=== PATIENT | male | born 1930 | race Caucasian/White ===

== ENCOUNTER → 2017-10-17 | Outpatient (CLI) | payer OTHER ==
[~2017-10-17] MED LIST: ACET500 PO; ALBU90OI61 INH; ASPI81EC; ASPI81EC PO; ATOR10; ATOR80 PO; Aspir 8181 MG PO; BISA10S PR; CHOL10002 PO; DIGO.25; DIGO.25 PO; DOC250; DOCCAL240 PO; DONE5 PO; DOXE0.5 PO; ENAL20; ENAL20 PO; ENAL5 PO; EZET10 PO; FLUO20; FLUO20 PO; FURO20 PO; FURO40; FURO40 PO; KETO15TC TOP; LOPE2C PO; MOXI400 PO; Micro-K10 MEQ PO; Milk Of Ma400 MG/5 M PO; NYST100TC TOP; Norco 5-325 Ta1 EACH PO; OMEP20ER PO; PHENY100ER; PHENY100ER PO; POTCHL20ER; POTCHL20ER PO; Prozac20 MG PO; Zofran Odt4 MG SL
[2017-10-17 17:40] LABS: Stool Occult Bld Immuno 1 Negative (NEGATIVE)
== END | disposition home or self-care (01) ==
LOC: LAB 13:08
PROVIDERS: Internal Medicine Gastroenterology
DX: D64.9 Anemia, unspecified (principal)
CPT/HCPCS: G0328

== ENCOUNTER → 2017-10-20 | Outpatient (CLI) | payer OTHER ==
[~2017-10-20] MED LIST changes: +Ferrous Glucon324 M1 PO
[2017-10-21 15:08] LABS: Stool Occult Bld Immuno 1 Negative (NEGATIVE)
== END | disposition home or self-care (01) ==
LOC: LAB SHORT 11:00 → LAB 11:00
PROVIDERS: Internal Medicine Gastroenterology
DX: D64.9 Anemia, unspecified (principal)
CPT/HCPCS: 82274

== ENCOUNTER 2018-08-08 14:03 | Emergency (ER) | payer OTHER ==
[~2018-08-08] VITALS: Ht 177.8 cm; Wt 86.2 kg
[~2018-08-08 14:03] MED LIST changes: +OMEPRAZOLE MAGN20 MG PO
[2018-08-08 15:01] LABS: BASOPHILS ABSOLUTE AUTO 0.04 K/mm3 (0.00-0.23); BASOPHILS PERCENT AUTO 0 % (0-2); EOSINOPHILS ABSOLUTE AUTO 0.32 K/mm3 (0.00-0.68); EOSINOPHILS PERCENT AUTO 4 % (0-6); Hematocrit 43.6 % (37.0-53.0); IMMATURE GRAN ABSOLUTE AUTO 0.03 K/mm3 (0.00-0.10); IMMATURE GRAN PERCENT AUTO 0 % (0-1); LYMPHOCYTES ABSOLUTE AUTO 2.31 K/mm3 (0.84-5.20); LYMPHOCYTES PERCENT AUTO 26 % (21-46); MONOCYTES ABSOLUTE AUTO 1.23 K/mm3 (0.16-1.47); MONOCYTES PERCENT AUTO 14 % (4-13); Mean Corpuscular HGB 33.6 pg (26.0-34.0); Mean Corpuscular HGB Conc 32.1 g/dL (31.5-36.5); Mean Corpuscular Volume 105 fL (80-100); NEUTROPHILS ABSOLUTE AUTO 4.96 K/mm3 (1.96-9.15); NEUTROPHILS PERCENT AUTO 56 % (41-73); Platelet Count 249 K/mm3 (150-400); RDW Coefficient Variation 12.7 % (11.7-14.2); RDW Standard Deviation 49.1 fL (35.1-46.3); Red Blood Cell Count 4.17 M/mm3 (4.30-5.90); White Blood Cell Count 8.89 K/mm3 (4.00-11.30)
[2018-08-08 15:20] LABS: Alanine Aminotransfer (ALT/SGP 50 U/L (12-78); Albumin, Blood 3.3 g/dL (3.4-5.0); Albumin/Globulin Ratio 0.9 (0.8-1.8); Alk Phos 96 U/L (50-136); Anion Gap 5 mmol/L (6-16); Aspartate Aminotrans (AST/SGOT 34 U/L (12-37); Bilirubin, Total 0.3 mg/dL (0.1-1.0); Blood Urea Nitrogen 19 mg/dL (8-24); Bun/Creatinine Ratio 23.7 (12.0-20.0); CO2, Blood 31 mmol/L (21-32); Calcium, Blood 8.5 mg/dL (8.5-10.1); Chloride, Blood 102 mmol/L (98-108); Globulin, Blood 3.8 g/dL (2.2-4.0); Glomerular Filtration Rate >60 (60-); Glucose, Blood 133 mg/dL (70-99); Potassium, Blood 3.6 mmol/L (3.5-5.5); Sodium, Blood 138 mmol/L (136-145); Total Protein, Blood 7.1 g/dL (6.4-8.2)
[2018-08-08] MEDS ORDERED: ALBU90OI INH (16:06)
[2018-08-08 16:57] LABS: Influenza A Negative (NEGATIVE); Influenza B Negative (NEGATIVE)
[2018-08-09] MEDS ORDERED: Tylophen500 MG PO (10:58)
[2018-08-09] MEDS ORDERED: BUME2 PO (10:59)
[2018-08-09] MEDS ORDERED: CALC.25 PO (11:02)
[2018-08-09] MEDS ORDERED: TUMS500 MG PO (11:03)
[2018-08-09] MEDS ORDERED: DOC250 PO (11:04)
[2018-08-09] MEDS ORDERED: POLY500 PO (11:06)
[2018-08-09] MEDS ORDERED: KETO15TC TOP (11:08)
[2018-08-09] MEDS ORDERED: Poly-Iron150 MG PO (11:10)
[2018-08-09] MEDS ORDERED: CHOL10002 PO (11:12)
[2018-08-09] MEDS ORDERED: BUME1 PO (11:29)
== END 2018-08-08 17:35 | disposition home or self-care (01) ==
LOC: ER 14:03
PROVIDERS: Emergency Medicine
DX: J45.909 Unspecified asthma, uncomplicated (principal); J20.9 Acute bronchitis, unspecified; F03.90 Unspecified dementia, unspecified severity, without behavioral disturbance, psychotic disturbance, mood disturbance, and anxiety; Z79.82 Long term (current) use of aspirin; Z79.899 Other long term (current) drug therapy; I10 Essential (primary) hypertension; Z86.73 Personal history of transient ischemic attack (TIA), and cerebral infarction without residual deficits; K21.9 Gastro-esophageal reflux disease without esophagitis; F32.9 Major depressive disorder, single episode, unspecified; E78.5 Hyperlipidemia, unspecified
CPT/HCPCS: 71046; 80053; 85025; 87804; 93005; 93010; 94640; 99284-25

== ENCOUNTER 2018-08-09 10:24 | Emergency (ER) | payer OTHER ==
[~2018-08-09] VITALS: Ht 172.7 cm; Wt 54.4 kg
[~2018-08-09 10:24] MED LIST changes: +ALBU90OI INH
[2018-08-09] MEDS ORDERED: Tylophen500 MG PO (10:58)
[2018-08-09] MEDS ORDERED: BUME2 PO (10:59)
[2018-08-09] MEDS ORDERED: CALC.25 PO (11:02)
[2018-08-09] MEDS ORDERED: TUMS500 MG PO (11:03)
[2018-08-09] MEDS ORDERED: DOC250 PO (11:04)
[2018-08-09] MEDS ORDERED: POLY500 PO (11:06)
[2018-08-09] MEDS ORDERED: KETO15TC TOP (11:08)
[2018-08-09] MEDS ORDERED: Poly-Iron150 MG PO (11:10)
[2018-08-09] MEDS ORDERED: CHOL10002 PO (11:12)
[2018-08-09] MEDS ORDERED: BUME1 PO (11:29)
== END 2018-08-09 13:21 | disposition home or self-care (01) ==
LOC: ER 10:24
DX: S16.1XXA Strain of muscle, fascia and tendon at neck level, initial encounter (principal); S20.212A Contusion of left front wall of thorax, initial encounter; I10 Essential (primary) hypertension; F32.9 Major depressive disorder, single episode, unspecified; E78.5 Hyperlipidemia, unspecified; F03.90 Unspecified dementia, unspecified severity, without behavioral disturbance, psychotic disturbance, mood disturbance, and anxiety; Z79.82 Long term (current) use of aspirin; Z79.899 Other long term (current) drug therapy; Z87.891 Personal history of nicotine dependence; Z86.73 Personal history of transient ischemic attack (TIA), and cerebral infarction without residual deficits; W18.30XA Fall on same level, unspecified, initial encounter
CPT/HCPCS: 71101; 72125; 99284-25

== ENCOUNTER → 2018-10-14 | Outpatient (CLI) | payer OTHER ==
[~2018-10-14] MED LIST changes: +(None)15 GM TOP; -Aspir 8181 MG PO; +Aspirin EC81 MG PO; +BUME1 PO; +Bumetanide2 MG PO; +CALC.25 PO; +DOC250 PO; +Fibercon625 MG PO; +GAVILAX17 GM PO; +POLY500 PO; +Poly-Iron150 MG PO; +TAMS.4ER PO; +TUMS500 MG PO; +Tylophen500 MG PO; +Zantac150 MG PO
[2018-10-15 06:19] LABS: Stool Occult Bld Immuno 1 Negative (NEGATIVE)
== END | disposition home or self-care (01) ==
LOC: LAB SHORT 14:33 → LAB 14:33
PROVIDERS: Internal Medicine
DX: Z12.11 Encounter for screening for malignant neoplasm of colon (principal); R53.81 Other malaise
CPT/HCPCS: G0328

== ENCOUNTER 2018-11-14 19:47 | Inpatient (IN) | payer OTHER ==
[~2018-11-14] VITALS: Ht 167.6 cm; Wt 76.2 kg
[~2018-11-14 19:47] MED LIST changes: -(None)15 GM TOP; -Fibercon625 MG PO; -GAVILAX17 GM PO; -TAMS.4ER PO; -Zantac150 MG PO
[2018-11-14 20:11] LABS: BASOPHILS ABSOLUTE AUTO 0.06 K/mm3 (0.00-0.23); BASOPHILS PERCENT AUTO 1 % (0-2); EOSINOPHILS ABSOLUTE AUTO 0.12 K/mm3 (0.00-0.68); EOSINOPHILS PERCENT AUTO 1 % (0-6); Hematocrit 43.6 % (37.0-53.0); Hemoglobin 14.3 g/dL (13.5-17.5); IMMATURE GRAN ABSOLUTE AUTO 0.11 K/mm3 (0.00-0.10); IMMATURE GRAN PERCENT AUTO 1 % (0-1); LYMPHOCYTES ABSOLUTE AUTO 0.58 K/mm3 (0.84-5.20); LYMPHOCYTES PERCENT AUTO 5 % (21-46); MONOCYTES ABSOLUTE AUTO 1.17 K/mm3 (0.16-1.47); MONOCYTES PERCENT AUTO 10 % (4-13); Mean Corpuscular HGB 33.7 pg (26.0-34.0); Mean Corpuscular HGB Conc 32.8 g/dL (31.5-36.5); Mean Corpuscular Volume 103 fL (80-100); Mean Platelet Volume 9.8 fL (9.1-12.4); NEUTROPHILS PERCENT AUTO 82 % (41-73); Platelet Count 328 K/mm3 (150-400); RDW Coefficient Variation 12.9 % (11.7-14.2); Red Blood Cell Count 4.24 M/mm3 (4.30-5.90); White Blood Cell Count 11.24 K/mm3 (4.00-11.30)
[2018-11-14] MEDS ORDERED: Zantac150 MG PO (20:13)
[2018-11-14] MEDS ORDERED: TAMS.4ER PO (20:14)
[2018-11-14 20:25] LABS: Albumin, Blood 3.2 g/dL (3.4-5.0); Albumin/Globulin Ratio 0.7 (0.8-1.8); Bilirubin, Total 0.2 mg/dL (0.1-1.0); Bun/Creatinine Ratio 19.8 (12.0-20.0); Calcium, Blood 9.5 mg/dL (8.5-10.1); Creatinine, Blood 1.26 mg/dL (0.60-1.20); Globulin, Blood 4.3 g/dL (2.2-4.0); Potassium, Blood 4.1 mmol/L (3.5-5.5); Total Protein, Blood 7.5 g/dL (6.4-8.2); Troponin I 0.081 ng/mL (0.000-0.040)
[2018-11-14 20:38] LABS: PCO2 Arterial 40.4 mmHg (35-45); PO2 Arterial 57.3 mmHg (80-100); Source, Urine Catheter; pH Blood Arterial 7.45 (7.35-7.45)
[2018-11-14 20:49] LABS: Bilirubin, Urine Neg (Neg); Blood, Urine 5+ (Neg); Glucose Qualitative, Urine Neg (Neg); Ketones, Urine Neg (Neg); Leukocyte Esterase, Urine Neg (Neg); Nitrite, Urine Neg (Neg); Protein, Urine 1+ (Neg); Specific Gravity, Urine 1.015 (1.003-1.022); Urobilinogen, Urine NORM (Normal)
[2018-11-14 20:59] LABS: Appearance, Urine Hazy (Clear); Color, Urine Yellow (P-Yellow)
[2018-11-14 21:00] LABS: Amorphous Light (0-Heavy); Bacteria Not Seen /hpf; Granular Casts 0-2 /lpf (0); Red Blood Cells, Urine TNTC /hpf (0-2); Squamous Epithelial Cells Rare /hpf (Few); White Blood Cells, Urine Rare /hpf (0-5)
--- NOTE | 2018-11-15 00:15 | NUR ---
11/14/18 2350 PT ADMITTED TO 352 PER CART FROM ER.
[2018-11-15 01:45] LABS: Anion Gap 8 mmol/L (6-16); Blood Urea Nitrogen 24 mg/dL (8-24); Bun/Creatinine Ratio 21.4 (12.0-20.0); CO2, Blood 25 mmol/L (21-32); Calcium, Blood 8.8 mg/dL (8.5-10.1); Chloride, Blood 104 mmol/L (98-108); Creatinine, Blood 1.12 mg/dL (0.60-1.20); Glomerular Filtration Rate >60 (60-); Glucose, Blood 149 mg/dL (70-99); Potassium, Blood 4.1 mmol/L (3.5-5.5); Sodium, Blood 137 mmol/L (136-145)
[2018-11-15 01:47] LABS: BASOPHILS ABSOLUTE AUTO 0.05 K/mm3 (0.00-0.23); BASOPHILS PERCENT AUTO 0 % (0-2); EOSINOPHILS ABSOLUTE AUTO 0.08 K/mm3 (0.00-0.68); EOSINOPHILS PERCENT AUTO 1 % (0-6); Hemoglobin 13.4 g/dL (13.5-17.5); IMMATURE GRAN ABSOLUTE AUTO 0.07 K/mm3 (0.00-0.10); IMMATURE GRAN PERCENT AUTO 1 % (0-1); LYMPHOCYTES ABSOLUTE AUTO 0.89 K/mm3 (0.84-5.20); LYMPHOCYTES PERCENT AUTO 8 % (21-46); MONOCYTES ABSOLUTE AUTO 1.94 K/mm3 (0.16-1.47); MONOCYTES PERCENT AUTO 17 % (4-13); Mean Corpuscular HGB 33.3 pg (26.0-34.0); Mean Corpuscular HGB Conc 31.9 g/dL (31.5-36.5); Mean Corpuscular Volume 105 fL (80-100); Mean Platelet Volume 9.7 fL (9.1-12.4); NEUTROPHILS ABSOLUTE AUTO 8.16 K/mm3 (1.96-9.15); NEUTROPHILS PERCENT AUTO 73 % (41-73); Platelet Count 249 K/mm3 (150-400); RDW Standard Deviation 50.4 fL (35.1-46.3); Red Blood Cell Count 4.02 M/mm3 (4.30-5.90); White Blood Cell Count 11.19 K/mm3 (4.00-11.30)
--- NOTE | 2018-11-15 04:14 | NUR ---
SHIFT SUMMARY: 88 Y/O MALE RESTED COMFORTABLY ALL SHIFT, BED ALARM APPLIED, BED LOW POSITION, CALL LIGHT AT SIDE.
--- NOTE | 2018-11-15 10:41 | NUR ---
CALLED DR REED- PT TROPONIN WAS BUMPED ON ADMIT INCREASED ON SECOND READING, NO ADDITIONAL TROPONINS ORDERED. 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 RECIEVED AN ORDER FOR A SWALLOW EVAL.
--- NOTE | 2018-11-15 19:52 | NUR ---
SHIFT SUMMARY- PT HAS BEEN HYPOTENSIVE T/O THE SHIFT. PT STATES HIS BP IS USUALLY LOW, PT STATES HE LIVES IN THE "[facility]" BUT IS UNABLE TO TELL STAFF WICH FACILITY HE LIVES IN. UNABLE TO DETERMINE THIS AT THIS TIME. WILL ATTEMPT TO FIND OUT TOMORROW, POSSIBLY CALLING PT FAMILY CAN ANSWER THE QUESTION. PT ALERT X3. PT HAS TARDIVE DYSKENESIA SYMPTOMS.
--- NOTE | 2018-11-15 20:45 | NUR ---
Echocardiogram completd.
[2018-11-15 23:45] LABS: Adenovirus Not Detected (NOT DETECT); Coronavirus 229E Not Detected (NOT DETECT); Coronavirus HKU1 Not Detected (NOT DETECT); Coronavirus NL63 Not Detected (NOT DETECT); Coronavirus OC43 Not Detected (NOT DETECT); Human Metapneumovirus Not Detected (NOT DETECT); Human Rhinovirus/Enterovirus Not Detected (NOT DETECT); Influenza A Not Detected (NOT DETECT); Influenza A/2009-H1 Not Detected (NOT DETECT); Influenza A/H1 Not Detected (NOT DETECT); Influenza A/H3 Not Detected (NOT DETECT); Influenza B Not Detected (NOT DETECT); Parainfluenza Virus 1 Not Detected (NOT DETECT); Parainfluenza Virus 2 Not Detected (NOT DETECT); Parainfluenza Virus 3 Detected (NOT DETECT); Parainfluenza Virus 4 Not Detected (NOT DETECT); Respiratory Syncytial Virus Not Detected (NOT DETECT)
[2018-11-15 23:46] LABS: Bordetella pertussis Not Detected (NOT DETECT); Chlamydophila pneumoniae Not Detected (NOT DETECT); Mycoplasma pneumoniae Not Detected (NOT DETECT)
[2018-11-16 05:04] LABS: BASOPHILS ABSOLUTE AUTO 0.03 K/mm3 (0.00-0.23); BASOPHILS PERCENT AUTO 1 % (0-2); EOSINOPHILS ABSOLUTE AUTO 0.07 K/mm3 (0.00-0.68); EOSINOPHILS PERCENT AUTO 1 % (0-6); Hematocrit 40.6 % (37.0-53.0); Hemoglobin 13.1 g/dL (13.5-17.5); IMMATURE GRAN ABSOLUTE AUTO 0.01 K/mm3 (0.00-0.10); IMMATURE GRAN PERCENT AUTO 0 % (0-1); LYMPHOCYTES PERCENT AUTO 17 % (21-46); MONOCYTES ABSOLUTE AUTO 1.21 K/mm3 (0.16-1.47); MONOCYTES PERCENT AUTO 19 % (4-13); Mean Corpuscular HGB 33.4 pg (26.0-34.0); Mean Corpuscular HGB Conc 32.3 g/dL (31.5-36.5); Mean Corpuscular Volume 104 fL (80-100); Mean Platelet Volume 9.8 fL (9.1-12.4); NEUTROPHILS ABSOLUTE AUTO 3.98 K/mm3 (1.96-9.15); NEUTROPHILS PERCENT AUTO 62 % (41-73); Platelet Count 236 K/mm3 (150-400); RDW Coefficient Variation 13.2 % (11.7-14.2); RDW Standard Deviation 51.1 fL (35.1-46.3); Red Blood Cell Count 3.92 M/mm3 (4.30-5.90)
[2018-11-16 05:27] LABS: Albumin, Blood 2.9 g/dL (3.4-5.0); Anion Gap 5 mmol/L (6-16); Blood Urea Nitrogen 12 mg/dL (8-24); Bun/Creatinine Ratio 14.8 (12.0-20.0); CO2, Blood 27 mmol/L (21-32); Calcium, Blood 8.8 mg/dL (8.5-10.1); Chloride, Blood 109 mmol/L (98-108); Creatinine, Blood 0.81 mg/dL (0.60-1.20); Glomerular Filtration Rate >60 (60-); Glucose, Blood 117 mg/dL (70-99); Phosphorus, Blood 2.2 mg/dL (2.5-4.9); Sodium, Blood 141 mmol/L (136-145)
--- NOTE | 2018-11-16 06:22 | NUR ---
11/16/18 4175 PAGED HOSPITALIST "DOVETAIL MACHINE OPERATOR" to notify of positive lab results of "para-influenza". CONTACT ISOLATION WAS STARTED. NO NEW ORDERS GIVEN. PT HAS HAD EPISODES OF COUGHING SPELLS WITH OCC. HEART ELEVATION TO 120'S. HEART RATE AT PRESENT IS "SINUS TACHY. AT 100". PT AWAKE AND WATCHING TV. DENIES ANY S/S. VITALS STABLE. INCONTINENT OF URINE AND GOOD CLAIRE-CARE GIVEN. REPOSITIONED Q 2 HOURS. WITH PILLOWS.
--- NOTE | 2018-11-16 18:19 | NUR ---
SHIFT SUMMARY- PT ALERT AND ORIENTED X3. PT STATED CHEST PAIN HAS RESOLVED, HE HAD STATED HIS CHEST WAS HURTING SINCE HE WAS COUGHING SO MUCH. NITRO PATCH APPLIED THIS MORNING AND C/O MILD CHEST PAIN ARE NOW GONE, BP WAS IN THE 140'S THIS MORNING AND HIGH 90'S THIS EVENING. PT SEEMS TO BE BREATHING BETTER AT THIS TIME. PT IS A FEED ASSIST AND MUST BE MONITORED WITH ALL PO INTAKE TO PREVENT ASPIRATION. WILL PASS ON IN REPORT TO NIGHT RN.
--- NOTE | 2018-11-16 18:52 | NUR ---
norma romero chart and with nursing. attemtpted to contact family no answer numbers shut off. left message with friend. no polst or AD on file. need prognosis and plan of care for patient and polst.
--- NOTE | 2018-11-17 04:49 | NUR ---
11/17/18 0455 BREATHING EASIER THAN PRIOR NIGHT. VITALS STABLE. NECTAR THICKENED WATER GIVEN WITH SIP CUP. REPOSITIONED TO OTHER SIDE WITH HELP OF 2 STAFF. DENIES ANY DISCOMFORT OR PROBLEMS. LESS COUGHING TONIGHT. INCONTINENT OF URINE AND HAS BRIEFS IN PLACE.
--- NOTE | 2018-11-17 16:38 | NUR ---
SUMMARY- PT A/O CALM AND COOPERATIVE, FOLLOWS COMMANDS PHYSICALLY ABLE. SPEECH THICK RELATED TO TONGUE DYSKENESIA. PT'S LUNGS SCATTERED RHONCHI, FREQ HACKING COUGH. RECEIVED COUGH MEDICATION WHICH SEEMED TO ALLEVIATE THE COUGH SIGNIFICANTLY. PT IS DEPENDANT IN CARE, TURNED AND CHANGED INCONTINANCE. SKIN INTACT. NEW IF TO RF. UP IN CHAIR FOR DINNER. TOLERATING PUREE, NECTOR THICK DIET. DENIES PAIN EXCEPT RIBCAGE PAIN WHEN COUGHING. VSS, TELE DC'D.
[2018-11-17] MEDS ORDERED: (None)15 GM TOP (17:19)
[2018-11-17] MEDS ORDERED: GAVILAX17 GM PO (17:21)
[2018-11-17] MEDS ORDERED: Fibercon625 MG PO (17:24)
--- NOTE | 2018-11-17 23:06 | NUR ---
11/17/18 3306 PAGED COMPRESSED GAS TESTER HOSPITALIST ABOUT ELEVATED BP TONIGHT. AWAITING RETURN CALL BACK.
--- NOTE | 2018-11-17 23:07 | NUR ---
11/17/18 2150 REPAGED MD ABOUT HYPERTENSION. SEE ORDERS.
[2018-11-18 04:52] LABS: BASOPHILS PERCENT AUTO 0 % (0-2); EOSINOPHILS PERCENT AUTO 0 % (0-6); Hemoglobin 12.5 g/dL (13.5-17.5); IMMATURE GRAN ABSOLUTE AUTO 0.08 K/mm3 (0.00-0.10); IMMATURE GRAN PERCENT AUTO 1 % (0-1); LYMPHOCYTES ABSOLUTE AUTO 0.55 K/mm3 (0.84-5.20); LYMPHOCYTES PERCENT AUTO 6 % (21-46); MONOCYTES ABSOLUTE AUTO 0.49 K/mm3 (0.16-1.47); MONOCYTES PERCENT AUTO 5 % (4-13); Mean Corpuscular HGB 33.2 pg (26.0-34.0); Mean Corpuscular HGB Conc 32.9 g/dL (31.5-36.5); Mean Platelet Volume 9.7 fL (9.1-12.4); NEUTROPHILS ABSOLUTE AUTO 8.89 K/mm3 (1.96-9.15); NEUTROPHILS PERCENT AUTO 89 % (41-73); Platelet Count 261 K/mm3 (150-400); RDW Coefficient Variation 13.2 % (11.7-14.2); RDW Standard Deviation 49.1 fL (35.1-46.3); Red Blood Cell Count 3.77 M/mm3 (4.30-5.90); White Blood Cell Count 10.01 K/mm3 (4.00-11.30)
[2018-11-18 05:12] LABS: Mean Corpuscular Volume 101 fL (80-100)
[2018-11-18 05:34] LABS: Albumin, Blood 2.6 g/dL (3.4-5.0); Anion Gap 7 mmol/L (6-16); Blood Urea Nitrogen 15 mg/dL (8-24); Bun/Creatinine Ratio 21.1 (12.0-20.0); CO2, Blood 27 mmol/L (21-32); Calcium, Blood 8.9 mg/dL (8.5-10.1); Chloride, Blood 104 mmol/L (98-108); Creatinine, Blood 0.71 mg/dL (0.60-1.20); Glomerular Filtration Rate >60 (60-); Glucose, Blood 155 mg/dL (70-99); Potassium, Blood 4.7 mmol/L (3.5-5.5); Sodium, Blood 138 mmol/L (136-145)
--- NOTE | 2018-11-18 06:31 | NUR ---
11/18/18 0545 AWAKENED FOR AM MEDS AND REPOSITIONING AND BRIEF CHANGE FOR INCONTINENCE. LESS COUGHING THIS SHIFT. WATCHING TV NOW.
--- NOTE | 2018-11-18 16:37 | NUR ---
PT IS A/OX3, PLEASANT AND COOPERATIVE, THE PT IS A MODERATE 2 PERSON ASSIST UP TO THE CHAIR, THE PT IS AN ASPIRATION RISK AND NEEDS SUPERVISION WITH HIS MEALS , SO FAR THIS SHIFT THE PT HAS DENIED ANY PAIN, THE PT APPEARS TO BE BREATHING EASILY ON RA AT REST, PT WAS GIVEN A BED BATH BY THE SENIOR LINUX SYSTEMS ENGINEER TODAY, CALL LIGHT IN REACH WILL CONTINUE TO MONITOR AND ASSESS FOR CHANGES
--- NOTE | 2018-11-19 07:00 | NUR ---
SHIFT SUMMARY PT IS A 88 Y/O MALE, ADMITTED FOR PNA. HE IS A&O X 2, THOUGH TRIBE. THE PT REPORTED PAIN IN HIS L SIDE, WORSE WITH DEEP BREATHS AND MOVEMENT. HE WAS MEDICATED WITH PRN TYLENOL, WHICH DID NOT CONTROL HIS PAIN WELL. DURING THE NIGHT, THE PT HAD GURGLING STOMACH NOISES AUDIBLE AT THE BASE OF HIS STERNUM WITH EXPIRATION. THE HOSPITALIST DR NINO WAS NOTIFIED, WHO ASSESSED THE PT. 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 NO OTHER ACUTE CHANGES IN PT CONDITION NOTED. VITALS STABLE. WILL CONTINUE TO MONITOR AND TREAT PER EMAR UNTIL HAND OFF TO DAY SHIFT.
--- NOTE | 2018-11-19 14:48 | NUR ---
pt activity SO FAR TODAY THE PT HAS BEEN UP AT BREAKFAST AND LUNCH TO THE BATHROOM AND TO THE CHAIR FOR A SHORT, TIME AND THE UP TO THE BSC THIS AFTERNOON, THE PT HAS BEEN DROWSY T/O THE DAY, AWAKENS TO VERBAL STIMULI AND THEN BACK TO BED
--- NOTE | 2018-11-19 17:06 | NUR ---
PT IS A/OX3, PLEASANT AND COOPERATIVE, THE PT IS UP WITH MINIMAL TO MODERATE ASSIST TO THE CHAIR, THE PT WAS UP FOR BREAKFAST TODAY AND UP IN THE CHAIR THIS AFTERNOON, PT APPEARS TO BE BREATHING EASILY AT REST, ST SEEN THE PT TODAY AND CHANGED THE PTS DIET TO NPO, THE PT WAS COOPERATIVE, HOWEVER, DISAPPOINTED IN THIS DECISION, THE PT DENIED ANY PAIN SO FAR THIS SHIFT, CALL LIGHT IN REACH, BED ALARM ON WILL CONTINUE TO MONITOR AND ASSESS FOR CHANGES
[2018-11-20 05:19] LABS: BASOPHILS ABSOLUTE AUTO 0.03 K/mm3 (0.00-0.23); BASOPHILS PERCENT AUTO 0 % (0-2); EOSINOPHILS PERCENT AUTO 0 % (0-6); Hematocrit 39.1 % (37.0-53.0); Hemoglobin 12.9 g/dL (13.5-17.5); Mean Corpuscular HGB 33.2 pg (26.0-34.0); Mean Corpuscular Volume 101 fL (80-100); Mean Platelet Volume 9.7 fL (9.1-12.4); NRBC ABSOLUTE 0.03 K/mm3 (0.00-0.02); NRBC Auto 0.3 /100 WBC (0.0-0.2); Platelet Count 319 K/mm3 (150-400); RDW Coefficient Variation 13.2 % (11.7-14.2); RDW Standard Deviation 48.7 fL (35.1-46.3); Red Blood Cell Count 3.89 M/mm3 (4.30-5.90)
[2018-11-20 05:20] LABS: IMMATURE GRAN ABSOLUTE AUTO 0.15 K/mm3 (0.00-0.10); IMMATURE GRAN PERCENT AUTO 1 % (0-1); LYMPHOCYTES ABSOLUTE AUTO 1.94 K/mm3 (0.84-5.20); LYMPHOCYTES PERCENT AUTO 16 % (21-46); MONOCYTES ABSOLUTE AUTO 1.05 K/mm3 (0.16-1.47); MONOCYTES PERCENT AUTO 9 % (4-13); NEUTROPHILS ABSOLUTE AUTO 8.83 K/mm3 (1.96-9.15); NEUTROPHILS PERCENT AUTO 73 % (41-73)
[2018-11-20 05:59] LABS: Alanine Aminotransfer (ALT/SGP 63 U/L (12-78); Albumin, Blood 2.6 g/dL (3.4-5.0); Albumin/Globulin Ratio 0.7 (0.8-1.8); Alk Phos 75 U/L (50-136); Anion Gap 8 mmol/L (6-16); Aspartate Aminotrans (AST/SGOT 24 U/L (12-37); Bilirubin, Total 0.2 mg/dL (0.1-1.0); Blood Urea Nitrogen 24 mg/dL (8-24); Bun/Creatinine Ratio 30.9 (12.0-20.0); CO2, Blood 27 mmol/L (21-32); Calcium, Blood 8.9 mg/dL (8.5-10.1); Chloride, Blood 104 mmol/L (98-108); Creatinine, Blood 0.78 mg/dL (0.60-1.20); Globulin, Blood 3.6 g/dL (2.2-4.0); Glomerular Filtration Rate >60 (60-); Glucose, Blood 131 mg/dL (70-99); Magnesium, Blood 2.2 mg/dL (1.6-2.4); Potassium, Blood 4.4 mmol/L (3.5-5.5); Sodium, Blood 139 mmol/L (136-145); Total Protein, Blood 6.2 g/dL (6.4-8.2)
--- NOTE | 2018-11-20 07:04 | NUR ---
SHIFT SUMMARY PT NPO PER SPEECH THERAPY NO PO MEDS. CONGESTED SOUNDING COUGH NONPRODUCTIVE. INCONT OF URINE. SPEECH HARD TO UNDERSTAND AT TIMES. HE WAS ABLE TO SLEEP T/O NOC.
--- NOTE | 2018-11-20 16:58 | NUR ---
PT AOX2 AND COOPERATIVE OF CARE. PT HAS BEEN IN BED MOST OF THE DAY AND UP IN CHAIR A BIT. PT NPO DUE TO ASPIRATION. PT CONTINUES TO HAVE COUGHING FITS ON HIS OWN SALIVA. PT ENCOURAGED TO USE FLUTTER VALVE. LS ARE COURSE THROUGHOUT. WILL CONTINUE TO MONITOR.
--- NOTE | 2018-11-21 07:01 | NUR ---
SHIFT SUMMARY PT INCONT OF URINE AND BOWEL. ABLE TO SLEEP T/O NIGHT. NPO PER ST. OCCASIONAL COUGH WHEN AWAKE. CALL LIGHT IN REACH.
--- NOTE | 2018-11-21 09:08 | NUR ---
Telephonic contact made with Leticia De Los Santos at [facility]. She reports that the principals cousin Sindhu; a retired RN, has been actively involved in Floyds care and is normally very responsive to phone calls and messages. She verified that Doyle does not have a POLST on file at the facility, and that no recent conversations have occurred with the family that she is aware of regarding treatment preferences. I left a detailed voicemail with Sindhu, providing both my mobile number and landline, requesting a callback to discuss the plan of care and the degree to which Doyle would want aggressive therapy or life saving interventions. I facilitated a case conference with Emely Biggs, Livestock Auctioneer, who is following up with the principals PCP.
--- NOTE | 2018-11-21 11:13 | NUR ---
HOF PLACED HOF PLACED. AIR AUSCULTATION COMPLETED. AWAITING XR VERIFICATION.
--- NOTE | 2018-11-21 11:46 | NUR ---
NGT READJUSTMENT. NGT ADVANCED 10CM RECCOMMENDED BY IMAGING. NEW CHEST XR PLACED. AWAITING CONFIRMATION.
--- NOTE | 2018-11-21 13:01 | NUR ---
Assited with pt adl's and spoke to him about tube feedings. He was able to demonstrate some understanding. unsure if he can retain the information. Worked with Jose Gardiner to locate family they were not answering. Met with nursing administrative supervisor to access potential phone numbers on patient family that were within HIPPA guideline. Nurse at [facility] was concerned that family who is engaged and usually called has not been available. Concern is family is also elderly and reported some recent health issues. Welfare check requested and family out of town will keep calling they may be out of cell range. supposed to retun soon.
--- NOTE | 2018-11-21 17:42 | NUR ---
SHIFT SUMMARY PT NG TUBE PLACED & VERIFIED BY IMAGING. PT CONTINUOUS FEEDING STARTED. PT TOLERATING WELL SO FAR. NO OTHER CHANGES IN ASSESSMENT AT THIS TIME. VSS. WILL CONTINUE TO MONITOR UNTIL TURNOVER IS COMPLETE.
--- NOTE | 2018-11-21 19:27 | NUR ---
PT RECIEVING CONTINUOUS FEEDING AT 70 ML/HR PER NG TUBE. PT DENIES ANY GI DISCOMFORT AND IS TOLERATING FEEDINGS WELL. WILL CONT TO MONITOR.
[2018-11-22 06:14] LABS: Anion Gap 5 mmol/L (6-16); Blood Urea Nitrogen 21 mg/dL (8-24); CO2, Blood 30 mmol/L (21-32); Chloride, Blood 102 mmol/L (98-108); Creatinine, Blood 0.81 mg/dL (0.60-1.20); Glomerular Filtration Rate >60 (60-); Glucose, Blood 139 mg/dL (70-99); Magnesium, Blood 2.4 mg/dL (1.6-2.4); Phosphorus, Blood 3.6 mg/dL (2.5-4.9); Sodium, Blood 137 mmol/L (136-145)
--- NOTE | 2018-11-22 06:27 | NUR ---
SHIFT SUMMARY: PT CONT TO TOLERATE NG TUBE FEEDINGS, DENIES ANY GI DISTRESS. FEEDING CONTINUOUS AT 70 ML/HR c 100 ML WATER BOLUS Q4H. PT DENIES ANY PAIN, N/V, ANXIETY, OR DISCOMFORT. PT WAS C/O HUNGER AT BEGINNING OF NIGHT, HOWEVER REPORTS FEELING SATISFIED AT THIS TIME. PT IS A&O c MINOR CONFUSION AND FORGETFULNESS. PT HAS WET, NONPRODUCTIVE COUGH THAT HAS IMPROVED SINCE ADMIT. Q2H TURNS IMPLEMENTED, PT INCONTINENT OF BOWEL AND URINE. BARRIER CREAM APPLIED FOR SKIN PROTECTION. NO OTHER CHANGES TO REPORT. WILL CONT TO MONITOR AND PROVIDE CARE UNTIL PRESUMED BY ONCOMING RN.
--- NOTE | 2018-11-22 17:36 | NUR ---
SHIFT SUMMARY PT CONTINUES TO TOLERATE NGT FEEDING. PT WORKING WITH PT & TOLARATED BEING UP IN CHAIR. NO OTHER CHANGES IN ASSESSMENT AT THIS TIME. VSS. WILL CONTINUE TO MONITOR UNTIL TURNOVER IS COMPLETE.
--- NOTE | 2018-11-23 06:37 | NUR ---
SHIFT SUMMARY NO ACUTE CHANGES TONIGHT. PT IS PLEASANT AND COOPERATIVE, A&O. TOLERATING NGT FEEDINGS AT 70 ML/HR. DENIES ANY GI DISCOMFORT N/V/D. PT C/O OF ABDOMEN PAIN WHEN COUGHING. PT HAS A HARSH, NONPRODUCTIVE COUGH. SUCTIONED PT SEVERAL TIMES FOR EXCESS ORAL SECRETIONS. WILL CONT TO MONITOR AND PROVIDE CARE UNTIL PRESUMED BY ONCOMING RN.
[2018-11-23 06:41] LABS: Anion Gap 5 mmol/L (6-16); Blood Urea Nitrogen 20 mg/dL (8-24); Bun/Creatinine Ratio 27.6 (12.0-20.0); CO2, Blood 29 mmol/L (21-32); Calcium, Blood 9.3 mg/dL (8.5-10.1); Chloride, Blood 103 mmol/L (98-108); Creatinine, Blood 0.73 mg/dL (0.60-1.20); Glomerular Filtration Rate >60 (60-); Glucose, Blood 142 mg/dL (70-99); Magnesium, Blood 2.4 mg/dL (1.6-2.4); Phosphorus, Blood 4.2 mg/dL (2.5-4.9); Potassium, Blood 4.1 mmol/L (3.5-5.5); Sodium, Blood 137 mmol/L (136-145)
--- NOTE | 2018-11-23 17:35 | NUR ---
PT AOX2 AND COOPERATIVE OF CARE. PT TOLERATING NG TUBE WELL. DENIES ANY PAIN AT THIS TIME. RESTING IN BED TODAY. FEED TUBING CHANGED AND PUMP RESTARTED. NO DISTRESS NOTED WILL CONTINUE TO MONITOR.
--- NOTE | 2018-11-24 05:01 | NUR ---
SHIFT SUMMARY PT A&O X 3, OCCASIONAL CONFUSION, GARBLED SPEECH AT BASELINE. CONTINUOUS TUBE FEEDING VIA NGT RUNNING @ 70 ML/HR, PT TOLERATING WELL DENIES ANY GI DISTRESS. LS CLEAR ON RA, RESP E/U, VSS/AFEBRILE. PT CALM AND COOPERATIVE c CARE AND STAFF. PT HAS SEVERAL LARGE INCONTINENT VOIDS, ABLE TO TELL STAFF WHEN NEEDING TO BE CHANGED, ABLE TO MAKE NEEDS KNOWN. TUBE FEEDING BAGS CHANGED THIS AM WITH NEW 1.2 RAEGAN JEVITY INFUSING. NO OTHER CHANGES TO REPORT. WILL CONT TO MONITOR AND PROVIDE CARE UNTIL PRESUMED BY ONCOMING RN.
[2018-11-24 05:45] LABS: Anion Gap 7 mmol/L (6-16); Blood Urea Nitrogen 16 mg/dL (8-24); Bun/Creatinine Ratio 22.3 (12.0-20.0); CO2, Blood 28 mmol/L (21-32); Chloride, Blood 104 mmol/L (98-108); Creatinine, Blood 0.72 mg/dL (0.60-1.20); Glomerular Filtration Rate >60 (60-); Glucose, Blood 151 mg/dL (70-99); Magnesium, Blood 2.3 mg/dL (1.6-2.4); Phosphorus, Blood 3.2 mg/dL (2.5-4.9); Potassium, Blood 4.4 mmol/L (3.5-5.5); Sodium, Blood 139 mmol/L (136-145)
--- NOTE | 2018-11-24 11:35 | NUR ---
Attempted to contact the principals cousins who are listed as the NOK. Left a voice message requesting a callback. This was my second attempt. See ethics assessment for detail around PEG tube decision making.
--- NOTE | 2018-11-24 17:15 | NUR ---
Review of patient with [facility] ethicist for plan of care. Multiple attempts to reach family today. Late today was able to contact his cousin Sindhu they are in [place]. Spoke earlier today with Nursing staff at [facility] spoke with Leticia about the ethics of his plan of care and literature review of PEG tube placement. Reiew of the past few months of pt function with Leticia. States he needs support and help with most ADLS. Some recent decline noted. They carefully feed him. Some coughing noted on his controlled puree diet. Leticia presents that he is well loved by the staff. According to Leticia Patient is having increasing debility in ambulation, mobility and swallow. FAST score is 6E. KPS score is 40% Pt has increased secretions and some drooling,painfull and difficult coughing. Pt high risk for repeat infections, high fall risk. pt high risk for readmission. Pt risk for failure of peg tube placement due to GI disease and poor function and chronic aspiraion of secretions. and comorbid conditions. Discussed hospice option with Leticia as an option of care. Contacted family and reivewed all care options from full care and PEG placement, mid level care and hospice. Suggested they review with [facility] staff what best benefits his quality of life. We briefly discussed full care versus limited comfort measures detatails in outpatient SNF setting and hospice at [facility]. Family will call [facility] and review care and Hospitalist notified family contacts Number given and morning call time set up family will keep phone with them. Advised family plan of care needs to start. Spoke with patient reassurance given that his family is well and knows where he is at and will help him figure out his care. Pt stressed from NG tube does not like it but will keep it in complains of mild nasuea. Suggested strategy is to optimize patient here and return to [facility] where his family states he has many girlfriends and transition to hospice and careful feedings. Goal is compassionate comprehensive care in line with prognosis and dementia guidelines that give pt continuity, and reduce suffering from his Gi distress and aspiration of secretions.
--- NOTE | 2018-11-24 18:42 | NUR ---
SHIFT SUMMARY. A&OX1-2, INTERMITTENT CONFUSION. DIFFICULT TO UNDERSTAND PT R/T APHASIA. PT WITH EXCESSIVE ORAL SECRETIONS, SPOKE WITH DR. MELENDEZ AT THIS TIME AND RECIEVED ORDERS TO START SCOPALAMINE PATCH. PT DENIES PAIN, SOB, N/V. PT TOLERATING CONTINUOUS TUBE FEEDINGS WITHOUT ISSUE, NO RESIDUAL, HOB AT 45 DEGREES AT MINUMUM. ORAL CARE PERFOMRED.
--- NOTE | 2018-11-25 04:36 | NUR ---
SHIFT SUMMARY A/O, ABLE TO MAKE NEEDS KNOWN. COOPERATIVE WITH CARE. ANSWERS QUESTIONS APPROPRIATELY WITH GARBLED SPEECH. REMAINS ON CONTINUOUS FEEDINGS; TOLERATING WELL. NO S/SX OF PAIN/DISCOMFORT. NO ACUTE CHANGES NOTED OVERNIGHT. DID NOT APPEAR TO REST MUCH. WCTM. BED IN LOWEST POSITION. CALL LIGHT AND BELONGINGS WITHIN REACH. REPORT TO ONCOMING RN.
--- NOTE | 2018-11-25 18:43 | NUR ---
SHIFT SUMMARY. A&OX2, PLEASANT AND COPPERATIVE. PT REQUIRES 2 ASSIST FOR TRANSFERS TO CHAIR FOR SAFETY, ALTHOUGH WOULD BE ABLE TO PIVOT TRANSFER WITH ONE ASSIST AT TIMES. PT UP TO CHAIR MOST OF THE SHIFT. TOLERATING TF WITHOUT ISSUE, NO RESIDUAL. NO BM X 3 DAYS, DR. MELENDEZ NOTIFIED, RECIEVED ORDERS FOR BOWEL CARE PROTOCOL. MILK OF MAGNESIA GIVEN PER TUBE. PT DENIES PAIN, SOB, N/V. NO NEW CHANGES OR CONCERNS.
--- NOTE | 2018-11-26 04:25 | NUR ---
Shift summary; pt tolerating tube feeding well. No nausea report. Pt had 15 cc residual at hs. Pt incontinent of urine x 4 during the night and changed out. Pt given a ducolax with no resulting bowel movement. Dr arguelles planning on meeting with family to determine whether a peg tube is to be inserted.
--- NOTE | 2018-11-26 17:21 | NUR ---
SHIFT SUMMARY NO ACUTE CHANGES. PATIENT DENIES PAIN, NAUSEA, AND SHORTNESS OF BREATH. PATIENT UP IN CHAIR WITH 1 ASSIST WITH GAIT BELT AND FWW. PT WORKED WITH PATIENT TODAY. NG TUBE PATENT AND RUNNING JEVITY 1.2 CONTINUOUS FEEDING. COUSIN AND COUSIN'S AT BEDSIDE. CALL LIGHT IN REACH, WILL CONTINUE TO MONITOR.
--- NOTE | 2018-11-26 21:32 | NUR ---
ASSUMED CARE OF THE PATIENT: YVONNE WAS AOX3 PLEASANT AND COOPERATIVE. STATES HE TRIED TO BLOW HIS NOSE AND THE NGT CAME RIGHT OUT. NGT WAS LAYING IN HIS BED FEEDING STILL RUNNING. STOPPED FEED AND REMOVED TAPE FROM HIS NOSE. INFORMED THAT WE WILL HAVE TO PLACE ANOTHER ONE, HE WAS NOT PLEASED ABOUT THIS. WILBERTO RODRÍGUEZPROGRAM DIR FOR THE NIGHT ASSISTED IN PLACEMENT OF THE NGT. YVONNE HAD A LITTLE DIFFICULT TIME HE WAS NOT ABLE TO SWALLOW AND CONTINUED TO PUT HIS HEAD BACK. HE HAD TO CONTINUE TO BE INSTRUCTED TO KEEP HIS HEAD DOWN. ONCE TUBE WAS PLACED AT PROPER MEASURE, DID GET IMMEDIATE GASTRO FLUID. ASPIRATED STOMACH CONTENT AND ALSO ASCULATED AIR MOVMEMENT IN THE STOMACH. PLACEMENT VERIFIED. RESTARTED TUBE FEEDING AT 70 AND HOUR. ADMINISTERED MEDS PER EMAR VIA TUBE. LUNG SOUNDS DIMINISHED THROUGHOUT. DENIES ANY OTHER DISCOMFORTS OTHER THEN NGT TUBE AT THIS TIME. TUBE WAS SECURED TO HIS NOSE WITH STAT LOCK. WILL CONTINUE TO [facility].
--- NOTE | 2018-11-27 05:10 | NUR ---
SHIFT SUMMARY: PATIENT NG TUBE HAD CAME OUT AT THE BEGINNING OF THE SHIFT WHEN HE ATTEMPTED TO BLOW HIS NOSE. THIS WAS REPLACED WITH ASSISTANCE OF WILBERTO GARCIA RN. IT WAS VERIFIED BY STOMACH CONTENT AND AIR ASCULATION. TUBE FEEDING WAS RESTARTED AT 70ML PER HOUR. MEDS WERE GIVEN WITH NO DIFFICULTY VIA PEG. HE CONTINUED TO HAVE PERIODS OF COUGHING FROM HIS SECRETIONS BUT REFUSED TO HAVE IT SUCTIONED. HE WAS REPOSITIONED ON SEVERAL OCCATIONS DUE TO SLIPPING DOWN IN BED. TUBE FEEDING INFUSED WITH NO PROBLEMS, LARGE BM NOTED THIS AM. NGT STILL IN PLACE AND SECURED TO NOSE. NO OTHER CHANGES TO NOTE THIS SHIFT. WILL REPORT TO DAY SHIFT RN.
--- NOTE | 2018-11-27 08:48 | NUR ---
PATIENT DID NOT EAT BREAKFAST THIS SHIFT DUE TO BEING NPO AT THIS TIME.
--- NOTE | 2018-11-27 13:18 | NUR ---
PATIENT DID NOT EAT LUNCH THIS SHIFT DUE TO BEING NPO AT THIS TIME.
--- NOTE | 2018-11-27 18:00 | NUR ---
SHIFT SUMMARY LATE ENTRY- NO ACUTE CHANGES. PATIENT UP IN CHAIR SEVERAL TIMES DURING SHIFT. NG TUBE IN PLACE, JEVITY CONTINUOUS FEED RUNNING. PT/OT WORKED WITH PATIENT. PATIENT TO HAVE PEG PLACEMENT TOMORROW AT APPROX 4PM. NPO AFTER 1PM. FAMILY VISITED IN THE AFTERNOON.
--- NOTE | 2018-11-27 18:00 | NUR ---
PATIENT DID NOT EAT DINNER THIS SHIFT DUE TO BEING NPO AT THIS TIME.
--- NOTE | 2018-11-27 21:13 | NUR ---
ASSUMED CARE OF THE PATIENT: WILFREDO WAS ASLEEP IN THE ROOM. AWAKENED EASILY BY VERBAL COMMAND. HE WAS PLEASANT AND COOPERATIVE. ASSESSMENT COMPLETED PLEASE SEE FOR DETAILS. TUBE FEEDING INFUSING AT 70ML AN HOUR, MEDS GIVEN VIA TUBE, 100ML FLUSH AFTERWARDS. DENIED ANY PAIN OR DISCOMFORT. LUNG SOUNDS STILL COURSE THROUGOUT, HEAD OF BED AT 45 DEGREES. ATTENDS DRY AND IN PLACE. WILL CONTINUE TO MONITOR,
--- NOTE | 2018-11-28 00:30 | NUR ---
PATIENT FOUND WITH NGT OUT AND LAYING ON THE BED. STATES HE JUST COUGHED REALLY HARD AND IT CAME OUT. STOPPED TUBE FEED AND PLACED A NEW NGT TUBE WITH MINIMAL DIFFICULTY. WAS ABLE TO ASCULATE AIR SOUNDS BUT WAS NOT ABLE TO PULL STOMACH CONTENT. THEREFORE WILL CALL MD FOR XRAY ORDER TO VERIFY.
--- NOTE | 2018-11-28 06:38 | NUR ---
SHIFT SUMMARY: PATIENT HAS SLEPT OFF AND ON THIS SHIFT, HE HAD OFF AND ON COUGHING DUE TO SECREATIONS. HE WAS UNABLE TO SLEEP FOR A PORTION OF THE NIGHT THEREFORE A NEW PATCH WAS PLACED AND BREATHING TREATMENT WAS CALLED TO RT. THIS HELPED TO OPEN HIM UP BUT HE STILL HAD COUGHING OFF AND ON. HE SLEPT FOR A PORTION OF THE NIGHT. NEW IV WAS STARTED IN LEFT FA 20G FOR PROCEDURE. TUBE FEEDING WAS STOPPED AT 0600 AND CHANGED TO JUST WATER AT THIS TIME. FLUSHED LINE WITH 100ML. WILL INFORM RN TO STOP ALL FLUIDS AT 1300 PER ORDER. NO OTHER ACUTE CHANGES OCCURED THIS SHIFT. WILL REPORT TO DAY SHIFT RN.
--- NOTE | 2018-11-28 08:18 | NUR ---
PATIENT DID NOT EAT BREAKFAST THIS SHIFT DUE TO BEING NPO AT THIS TIME.
--- NOTE | 2018-11-28 13:33 | NUR ---
PATIENT DID NOT EAT LUNCH THIS SHIFT DUE TO BEING NPO AT THIS TIME.
--- NOTE | 2018-11-28 16:34 | NUR ---
TWO PERSON ASSIT TO FREEDOM, LIZY FRANCO L NARES, LUNGS COARSE T/O BILAT WITH RONCHI, NO OBSERVABLE RESP DISTRESS, WEARING ATTENDS, L SIDE WEAKER THAN LEFT. DENTURES OUT AND LEFT IN ROOM.
--- NOTE | 2018-11-28 16:56 | NUR ---
11/28/18 1656 Jose Elliott 3-LEAD EKG REVIEWED WITH PHYSICIAN PRIOR TO START OF PROCEDURE.PATIENT CONFIRMS NPO STATUS AND AGREES WITH SCHEDULED PROCEDURE. History, Chart, Medications and Allergies reviewed before start of procedure.MONITOR INTACT WITH CONTINUOUS PULSE OXIMETRY AND INTERMITTENT BP.O2 VIA N/C INTACT THROUGHOUT SEDATION/PROCEDURE. Bite Block Placed
--- NOTE | 2018-11-28 17:34 | NUR ---
SHIFT SUMMARY PATIENT DENIES PAIN, NAUSEA, AND SHORTNESS OF BREATH. PATIENT TRANSFERED TO DAY SURGERY FOR PEG PLACEMENT THIS AFTERNOON BUT PEG COULD NOT BE PLACED DUE TO HIATAL HERNIA. CONSULT PLACED TO INTERVENTIONAL RADIOLOGIST FOR PLACEMENT. NG REPLACED DURING PROCEDURE IN RIGHT NOSTRIL. CALL LIGHT IN REACH, WILL CONTINUE TO MONITOR.
--- NOTE | 2018-11-28 18:10 | NUR ---
PATIENT DID NOT EAT DINNER THIS SHIFT DUE TO BEING NPO AT THIS TIME.
--- NOTE | 2018-11-29 04:10 | NUR ---
XRAY FINALLY GOT THE ORDER COMPLETED SPOKE WITH DR. JURADO WHO VERIFIED NGT WAS OK TO USE. STARTED TUBE FEEDING BACK UP AT THIS TIME.
--- NOTE | 2018-11-29 05:24 | NUR ---
SHIFT SUMMARY; WILFREDO HAD AN EVENTFUL NIGHT. AFTER GETTING MEDS HE HAD DISLODGED HIS NGT AROUND MIDNIGHT. THIS WAS REPLACED WITH LITTLE DIFFICULY. HE WAS TRYING TO FIGHT IT SOME BUT FINALLY IT WENT DOWN GOOD. CALLED MD TO GET ORDER FOR VERIFICATION. XRJEFF TOOK A WHILE TO XRAY, FINALLY GOT VERIFICATION AROUND 410. RESTARTED TUBE FEEDING. GOT HIM A BREATHING TREATMENT FOR COUGHING, THIS HELPED TO CALM DOWN HIS COUGH. THEN HE RESTED THE REST OF THE NIGHT. MEDS GIVEN PER EMAR, NO ACUTE CHANGES OTHERE THEN ABOVE. WILL REPORT TO DAY SHIFT RN.
[2018-11-29 06:00] LABS: Anion Gap 4 mmol/L (6-16); Blood Urea Nitrogen 19 mg/dL (8-24); Bun/Creatinine Ratio 24.4 (12.0-20.0); CO2, Blood 28 mmol/L (21-32); Calcium, Blood 8.8 mg/dL (8.5-10.1); Chloride, Blood 103 mmol/L (98-108); Creatinine, Blood 0.78 mg/dL (0.60-1.20); Glomerular Filtration Rate >60 (60-); Glucose, Blood 131 mg/dL (70-99); Potassium, Blood 4.2 mmol/L (3.5-5.5); Sodium, Blood 135 mmol/L (136-145)
--- NOTE | 2018-11-29 18:45 | NUR ---
NO ACUTE CHANGES NOTED THIS SHIFT, TUBE FEEDING RATE CHANGED TO 65ML/HR FROM 70ML/HR. NO C/O OF PAIN. WILL CONTINUE TO MONITOR AND REPORT TO ONCOMING RN
--- NOTE | 2018-11-30 01:46 | NUR ---
11/30/18 0145 PT SLEEPING WELL WITH TUBE FEEDING GOING AT 65 ML/HOUR. HOB ELEVATED 30 DEGREES. RESIDUAL ONLY 20 ML.
--- NOTE | 2018-11-30 05:50 | NUR ---
11/30/18 0550 PT SLEEPING WELL LAST NIGHT. NG TUBE PATENT AND IN PLACE. RESIDUAL CHECKED AND REMAINS <20 ML. NO C/O DISCOMFORT OR S/S. UNEVENTFUL NIGHT.
--- NOTE | 2018-11-30 11:06 | NUR ---
TUBE FEEDING PUMP TUBING CHANGED, NEW BOTTLE JEVITY 1.2 HUNG. PT TOLERATING WELL
--- NOTE | 2018-11-30 17:25 | NUR ---
NO ACUTE CHANGES NOTED THIS SHIFT, PLAN FOR DR SPICER CONSULT FOR PEG TUBE PLACEMENT SATURDAY. WILL CONTINUE TO MONITOR AND REPORT TO ONCOMING RN
--- NOTE | 2018-12-01 04:03 | NUR ---
12/01/18 0015 TUBE FEEDINGS HELD PT MAY BE HAVING PEG TUBE PLACEMENT TODAY WITH DR SPICER. NG TUBE CLAMPED OFF AND SECURED TO GOWN. VITALS STABLE THIS SHIFT. REPOSITIONED Q 2 HOURS WITH BRIEF CHANGES DONE. ORAL CARE GIVEN.
--- NOTE | 2018-12-01 06:27 | NUR ---
12/01/18624 ATTEMPTED TO LEAVE A MESSAGE FOR DR SPICER'S ANSWERING SERVICE ABOUT CONSULT BUT "THE MAILBOX IS FULL". WILL NOTIFY DAY SHIFT RN. PT NPO AND NG TUBE FEEDING WAS HELD AT 0000 FOR POSSIBLE PROCEDURE TODAY.
--- NOTE | 2018-12-01 18:10 | NUR ---
PATIENT IS ALERT AND ORIENTED. THE PATIENTS COUSIN WAS AT THE BEDSIDE THIS MORNING, PHONE NUMBER IS ON THE WHITEBOARD. PATIENT WAS NPO FOR MOST OF THE DAY WAITING PEG TUBE PLACEMENT. THE PEG TUBE WAS NOT PLACED, THEREFORE THE FEEDINGS BEGAN AROUND 1700. PATIENT WORKED WITH PHYSICAL AND OCCUPATIONAL THERAPY TODAY. NO COMPLAINTS. Q2H TURNS. WILL CONTINUE TO MONITOR
--- NOTE | 2018-12-02 00:51 | NUR ---
12/02/18 0040 PT SLEEPING NOW. NG TUBE WITH FEEDINGS RUNNING AT 65 ML/HOUR WITH WATER FLUSH OF 125 ML/HOUR EVERY 4 HOURS. RESIDUAL WAS ZERO AT 2100. VITALS STABLE.
--- NOTE | 2018-12-02 06:22 | NUR ---
12/02/18 0555 PT PULLED OUT NG TUBE DURING ROUNDS NOW. FEEDINGS HELD. PAGED RADHA SLATER TO INFORM.
--- NOTE | 2018-12-02 07:52 | NUR ---
12/02/18 0635 #18 Indonesian NG tube inserted INTO LEFT NARES AND PLACEMENT TO BE CHECKED WITH CHEST X-RAY. TUBE SECURED TO NOSE .
--- NOTE | 2018-12-02 17:21 | NUR ---
SUMMARY PT RESTING QUIETLY IN BED, WAKES EASILY, WAS NPO FOR PROCEDURE, WAS NOTIFIED THIS AFTERNOON THAT HE WAS BUMPED UNTIL TOMORROW, TUBE FEEDS RE-STARTED AT 25 CC/HR, PT CHESTER WELL, WILL CONT TO MONITOR
--- NOTE | 2018-12-03 06:29 | NUR ---
SHIFT SUMMARY PT IS AN 88 Y/O MALE, ADMITTED FOR PNA. HE IS A&O X 3, THOUGH HIS SPEECH IS GARBLED AND DIFFICULT TO UNDERSTAND AT TIME. HE IS GETTING CONTINUOUS TUBE FEEDING THROUGH AN NG TUBE, THOUGH AFTER CONSULTING THE HOSPITALIST DR SANTANA IT WAS STOPPED AT 0100 IN PREP FOR A POSSIBLE PEG TUBE PLACEMENT PROCEDURE TODAY. NO COMPLAINTS OF PAIN, NAUSEA OR SOB DURING THE NIGHT. VITAL SIGNS STABLE. NO OTHER ACUTE CHANGES IN PT CONDITION NOTED. WILL CONTINUE TO MONITOR AND TREAT PER EMAR UNTIL HAND OFF TO DAY SHIFT.
--- NOTE | 2018-12-03 14:21 | NUR ---
PT TAKEN DOWN TO PROCEDURE BY BED
--- NOTE | 2018-12-03 15:55 | NUR ---
PT RETURNED TO THE ROOM WITH G-TUBE IN PLACE, L ABD, MINIMAL SURFACE BLEEDING, PT DENIES PAIN, FAMILY PRESENT WHEN PT RETURNED TO THE ROOM
--- NOTE | 2018-12-03 18:09 | NUR ---
SUMMARY PT RESTING IN BED WATCHING TV, G-TUBE SITE APPEARS STABLE, NO FURTHER BLEEDING NOTED, PT DENIES PAIN, NG WAS REMOVED DURING THE PROCEDURE, VSS, NO ACUTE CHANGES, WILL CONT TO MONITOR
--- NOTE | 2018-12-03 22:43 | NUR ---
DR Zan Bhatia updated on new gastrostomy tube placemen t this afternoon with no orders when it can be used. Discussed usual time of nonuse with DR Wen Diaz who said usually the next AM is ok to use. NG tube was removed during procedure. Hold other meds and lovenox tonight. Clarify with primary in AM when we can administer medications in new Gtube and will give IV dilantin 100 mg tonight for seizure disorder and give 1 l NS at 50 ml hr due to no fluids via tube or tube feeding.
--- NOTE | 2018-12-04 19:36 | NUR ---
SHIFT SUMMARY- PT APPEARS TO BE TOLLERATING THE TUBE FEEDING WELL. MEDS GIVEN AT THE TIME TUBE FEED WAS STARTED. PT TUBE FEED WAS INCREASED BY 15 ML PER HOUR AFTER 4 HOURS OF TUBE FEEDING. PT HAS SLEPT T/O THE SHIFT, AND IS FREQUENTLY WET, FREQUENT CLAIRE CARE DONE BY STAFF. HOB LOCKED AT 30 DEGREES FOR PT SAFETY TO PREVENT ASPIRATION. PASSED ON IN BEDSIDE REPORT TO NIGHT RN ROSA.
[2018-12-05 05:33] LABS: Magnesium, Blood 2.1 mg/dL (1.6-2.4); Phosphorus, Blood 2.3 mg/dL (2.5-4.9)
--- NOTE | 2018-12-05 07:03 | NUR ---
tolerated tube feeding continous jevity 1.5 liz at 50 ml hr and 200 ml h20 flush Q 4 hours. Gtube site care done and rotated tube. Pt pleasant and able to communicate. Hollars out at times. Incontinent of bowel and bladder
--- NOTE | 2018-12-05 18:05 | NUR ---
SHIFT SUMMARY- PT HAS SLEPT T/O THE SHIFT, SEEMS TO BE TOLLERATING TUBE FEEDINGS WELL AT THIS TIME, NO NAUSEA, OR ABD PAIN. PT HAS HADF TWO LARGE LOOSE STOOLS LIKELY R/T THE TUBE FEEDING FORMULA. WILL RECOMEND NIGHT STAFF HOLD MIRALAX AT THIS TIME. PT HAS BEEN MORE INTERACTIVE WITH STAFF DURING THE CHANGES, REPOSITIONING FREQUENTLY T/O THE DAY, LINNEN CHANGE AFTER A LARGE BM AND COCCYX MEPILEX PLACED FOR PREVENTION, LARGE BLANCHABLE RED AREA ON THE PT BOTTOM. NO OPEN SORES. PT LAUGHING WITH STAFF, HOB LOCKED AT 30 DEGREES TO PREVENT ASPIRATION. TUBE FEEDING GOING AT A RATE OF 50ML PER HOUR. WILL PASS ON IN BEDSIDE REPORT.
[2018-12-06 05:01] LABS: Magnesium, Blood 2.1 mg/dL (1.6-2.4); Phosphorus, Blood 2.2 mg/dL (2.5-4.9)
--- NOTE | 2018-12-06 06:45 | NUR ---
PATIENT RESTED WELL THIS SHIFT, TOLERATING HIS PEG TUBE FEEDING WELL. ASSESSMENTS AND HOURLY ROUNDS COMPLETED. PATIENT VOIDIING WELL. PATIENT CALLED APPRORIATELY AND WAS ABLE TO MAKE HIS NEEDS KNOWN. DENIED PAIN TONIGHT. REPORT PASSED TO DAY NURSE.
--- NOTE | 2018-12-06 17:36 | NUR ---
PATIENT A/O AND ABLE TO VOICE NEEDS. TURNING Q2 HOURS. JEVITY 1.5 RUNNING AT 50ML/HR THROUGH PEG TUBE, PATIENT TOLERATING WELL. MEPILEX TO COCCYX FOR PROTECTION, NO SKIN BREAKDOWN. 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 PATIENT IS STRICT NPO, MEDS GIVEN THROUGH PEG TUBE. MULTIPLE LOOSE STOOLS TODAY, MIRALAX HELD. SCD'S FOR DVT PROPHYLAXIS. PATIENT DENIES ANY PAIN OR NAUSEA. CALM AND COOPERATIVE WITH CARE.
[2018-12-07 05:24] LABS: Phosphorus, Blood 2.6 mg/dL (2.5-4.9)
--- NOTE | 2018-12-07 05:36 | NUR ---
EOS: PATIENT TOLERATING HIS PEG TUBE FEEDING WELL. DENIES PAIN THIS SHIFT. TURN Q2 PATIENT TOLERATED.
--- NOTE | 2018-12-07 17:19 | NUR ---
PATIENT CHANGED FROM CONTINUOUS FEEDING TO BOLUS FEEDS TODAY. TURNING Q2 HOURS, REDNESS TO CLAIRE AREA HAS IMPROVED. PATIENT ABLE TO RELAY NEEDS TO STAFF. SPEECH REMAINS GARBLED AND DIFFICULT TO UNDERSTAND. INCONTIENT OF URINE AND STOOL. SCD'S FOR DVT PROPHYLAXIS. FALL PRECAUTIONS IN PLACE. ORAL CARE Q2 HOURS.
--- NOTE | 2018-12-07 21:35 | NUR ---
PATIENT RESTING IN BED; PLEASANT AND COOPERATIVE, GARBLED SPEECH AND LEFT SIDED WEAKNESS PER HX OF CVA. PEG TUBE IN PLACE AND CHECKED RESIDUAL=30ML GAVE 50ML FLUSH THEN MEDS THEN 120 ML FLUSH GIVEN BEFORE BOLUS OF JEVITY 1.5 240 ML AND FINALLY ANOTHER FLUSH OF 120 ML. PATIENT TOLERATED ALL OF THIS WELL, DENIES PAIN, NAUSEA, FEELING OF FULLNESS. HOB AT 45 DEGREES. ASSESSMENT COMPLETED. LINEN CHECK. CALL ALLEN WITHIN REACH.
--- NOTE | 2018-12-08 18:16 | NUR ---
SHIFT SUMMARY YVONNE TOLERATED HIS TF FAIRLY WELL. 0800, VERY LITTLE RESIDUAL. 120ML GIVEN BEFORE AND AFTER GRAVITY BOLUS OF 237 JEVITY. 1130 RESIDUALS SHOWED 160 ML, HELD OFF FOR AN HOUR. 1245 RESIDUALS DOWN TO 30ML, WATER GIVEN BEFORE AND AFTER FLUSH AGAIN. 1600, NO RESIDUAL, WATER GIVEN AGAIN BEFORE AND AFTER BOLUS TF. PT NEEDS TO BE UP AT LEAST AT 50-55 DEGREES HOB TO AVOID ASPIRATION FOR AT LEAST HALF HOUR AFTER THE FEEDS. STRICT NPO. ORAL CARE AND SHAVING DONE. INCONTINENT URINE, BOTTOM SLIGHTLY RED. COUSIN VISITED. PT AND OT WORKED WITH HIM AND STATE HE IS WEAKER AND MORE TIRED THAN YESTERDAY. HE REQUIRED 2 PHYSICAL THERAPISTS TO STAND THIS MORNING. NURSING STAFF USED LIFT TO GET HIM FROM RECLINING CHAIR TO BED. ORIENTED TO PLACE, UNSURE OF WHERE HE LIVED BEFORE. SOME CONFUSION NOTED. CALL LIGHT IN REACH, FREQUENT CHECKS. WCTM HEELS VERY RED, FLOATED ON PILLOWS, HEEL PROTECTORS ON.
--- NOTE | 2018-12-09 05:31 | NUR ---
Rn summary: Patient is alert and cooperative. Pt has garbled speech. He was given 2 feedings via peg tube this shift at 2030 and 0010. Pt had no residual the first time and 10cc the second time. Pt has had HOB up and has tolerated feedings well. Pt has rested very little. He seems more restless this am. He denies pain. Pt has been repositioned q 2 hours. He is incontinent of urine and attends are changed as needed. No redness to buttocks and heels have been elevated and free of redness this shift. Breath sounds are diminished but pt was having trouble taking deep breaths on command. Pt has been stable this shift. Uses call light appropriately and it is in reach.
--- NOTE | 2018-12-09 18:07 | NUR ---
PATIENT TOLERATED TUBE FEEDING WELL. INCONTINENT, CHANGED PRN. NO ACUTE ISSUES NOTED.
--- NOTE | 2018-12-10 04:47 | NUR ---
GEOPHYSICAL E LOGGER SUMMARY NO ACUTE CHANGES THIS SHIFT. PT AAOX2, PLEASANT AND COOPERATIVE. INCONTINENT, REQUIRING 2 ASSIST WITH TURNS AND CHANGES. PRIOR TO MED AND FORMULA ADMINISTRATION, RESIDUAL STOMACH CONTENTS WERE 150 ML WHICH WERE RETURNED TO STOMACH. GAVE 1 CARTON OF JEVITY BY GRAVITY AT START OF SHIFT. PT DENIES N/V OR BLOATING. PT STATES TUBE FEEDINGS "SEEM TO BE WORKING WELL". PT HAS RESTED WELL THIS SHIFT. VSS, WILL CONTINUE TO MONITOR.
--- NOTE | 2018-12-11 05:02 | NUR ---
BINMAN SUMMARY NO ACUTE CHANGES. PT DENIES NAUSEA/BLOATING AFTER PEG TUBE FEEDING AND MEDS. ONLY 10 ML RESIDUAL FLUIDS PRIOR TO FEEDING. ASSIST PT WITH FREQUENT REPOSITIONING AND ATTENDS CHANGES NEEDED. VSS, WILL CONTINUE TO MONITOR.
--- NOTE | 2018-12-11 18:09 | NUR ---
SHIFT SUMMARY ASSUMED CARE AT 1700. REPORT RECEIVED FROM JULIEN RODRÍGUEZ. PATIENT IS ALERT, PLEASANT AND COOPERATIVE. HE IS ABLE TO MAKE HIS NEEDS KNOWN. HE IS INCONTINENT OF BOWEL AND BLADDER BUT KNOWS WHEN HE HAS GONE. HE PARTICIPATES IN HIS CARE BY ROLLING AND LIFTING HIPS. TUBE FEED COMPLETED PER ORDERS WITH H20 FLUSH, NO RESIDUAL PRIOR. PATIENT DENIES PAIN AT THIS TIME. BED LOW AND LOCKED, BED ALSRM SET, CALL LIGHT WITH REACH. WILL CONT TO MONITOR.
--- NOTE | 2018-12-11 20:50 | NUR ---
Patient tolerated i can of tube feeding. Patient peg tube site cleaned with NS and placed new gauze. Patient complains of tenderness at site when cleaning otherwise denies any pain.
--- NOTE | 2018-12-12 05:29 | NUR ---
PATIENT FREQUENTLY TURNED AND CHANGED DUE TO INCONTINENCE. PATIENT USING CALL LGHT AND CALLING OUT AT TIMES. ORAL CARE PROVIDED, TONGUE SLIGHT COATED. PATIENT DENIES ANY PAIN. PATIENT SLIGHTLY RESTLESS AT TIMES. PATIENT SLIDES DOWN IN BED AND KICKS FEET OUT AND YELLS OUT TO BE BOOSTED UP IN THE BED.
--- NOTE | 2018-12-12 17:58 | NUR ---
SHIFT SUMMARY- PT DENIES PAIN. DENIES SOB. RESP E/U ON RA. DENIES N/V. TOLERATING TUBE FEEDS. 2 PERSON ASSIST WITH GB AND FWW TO CHAIR. NO OTHER SIGNIFICANT CHANGES THIS SHIFT.
--- NOTE | 2018-12-13 06:43 | NUR ---
call light in reach, no IV, tube feeding done as proscribed, adjusted in bed, no major medical changes noted during shift, will continue to monitor and treat until provide bsr to day shift
--- NOTE | 2018-12-13 16:43 | NUR ---
SHIFT SUMMARY- PT AXO X 1-2. DENIES PAIN. DENIES SOB. RESP E/U ON RA. DENIES N/V. PT TOLERATING TUBE FEEDS. PT DENIES BLOATING/DISCOMFORT. 2 PERSON ASSIST WITH GB AND FWW TO CHAIR. NO OTHER SIGNIFICANT CHANGES THIS SHIFT.
--- NOTE | 2018-12-14 04:24 | NUR ---
SHIFT SUMMARY PT ADMITTED FOR PNEUMONIA. PREFERS TO BE CALLED YVONNE. FULL CODE. NPO. TUBE FEEDING BOLUSES VIA PEG TUBE WHICH WAS PLACED ON 12/03/18. JEVITY 1.5 HIGH CALORIE. SUGGESTED TIMES PER ORDERS. ELEVATE HOB 60 DEGREES FOR 30 MINUTES AFTER MEALS. SUCTION SWABS WITH ORAL CAREE. NO IV ACCESS NEEDED. MONITOR RESIDUAL AND HOLD IF GREATER THEN 250 MLS. 60 MLS FLUSH BEFORE AND AFTER 4 FEEDINGS. 300 MLS TID BETWEEN FEEDINGS AND 30 MLS WITH MEDS. LOVENOX FOR DVT PROPHYLAXIS. 2 PERSON ASSIST WITH TRANSFERS. L SIDED WEAKNESS NOTED DUE TO PREVIOUS CVA. THE PT PRESENTED TO [facility] FOR NEW COUGH. THE PT PRESENTED FROM [facility] WHERE HE HAD FEVER, VOMITING, WEAKNESS, AND A FALL. THE PT WAS NOTED TO HAVE SEVERE SEPSIS NOTED CAUSED FROM PENUMONIA BUT NO DIFINITIVE INFILTRATE NOTED ON X-RAY, PRESUMABLY CAUSED BY ASPIRATION PER REPORT. SHORTLY FOLLOWING ADMIT THE PT WAS NTOED TO BE COUGHING CONSTANTLY, EVEN ASPIRATING OWN SECRETIONS WITH AN INABILITY TO PROTECT AIRWAY. DUE TO THIS PEG TUBE WAS PLACED AND THE PT APPARENTLY WAS UNABLE TO RETURN TO [facility] DUE TO PECG TUBE PLACEMENT PER REPORT. THE PT HAS BEEN PLEASENT AND COOEPRATIVE AND HAS BEEN USING CALL LIGHT APPROPRIATELY. PT IS NOTED TO HAVE INTERMITTENT CONFUSION AND FORGETFULLNESS. PT APPEARS TO BE SLEEPING COMFORTABLY AT THIS TIME WITH NO APPARENT SIGNS OF ACUTE DISTRESS. ABLE TO MAKE NEEDS KNOWN AND CALL LIGHT IN REACH.
--- NOTE | 2018-12-14 16:02 | NUR ---
SHIFT SUMMARY- PT DENIES PAIN. DENIES SOB. RESP E/U ON RA. DENIES N/V. PT TOLERATING TUBE FEEDS. 0 RESIDUALS THIS SHIFT. DENIES BLOATING/ABD DISCOMFORT. 2 PERSON ASSIST WITH FWW TO CHAIR. NO OTHER SIGNIFICANT CHANGES THIS SHIFT.
--- NOTE | 2018-12-15 04:23 | NUR ---
SHIFT SUMMARY NO APPARENT ACUTE CHANGES NOTED SO FAR THIS SHIFT. PT CONTINUES TO APPEAR TO TOLLERATE PEG FEEDINGS WELL WITH NO RESIDUAL NOTED. THE PT HAS APPEARED TO SLEEP COMFORTABLY MOST OF THE SHIFT. EASILY AWAKENS FOR CARE. PT APPEARS TO BE SLEEPING COMFORTABLY AT THIS TIME WITH NO APPARENT SIGNS OF ACUTE DISTRESS. ABLE TO MAKE NEEDS KNOWN AND CALL LIGHT IN REACH.
--- NOTE | 2018-12-16 04:54 | NUR ---
SHIFT SUMMARY PT HAD NO ISSUES NOTED. PT FEEDING WENT WELL. PT HAD NO ISSUES NOTED THIS SHIFT. PT SLEPT T/O SHIFT. PT CURRENTLY SLEEPING IN NO DISTRESS. CALL LIGHT IN REACH.
[2018-12-16] MEDS ORDERED: ALBU90OI INH (09:24)
--- NOTE | 2018-12-16 14:11 | NUR ---
REPORT TO MINI AT [facility]. ANSWER ALL QUESTIONS.
--- NOTE | 2018-12-16 16:38 | NUR ---
IN W/C /[facility].
== END 2018-12-16 16:37 | DRG 871 ==
LOC: ER 19:47 → MEDS 21:49 → ER 23:44 → MEDS 23:45 → ENPENDDIS 12-16 09:50 → MEDS 12-16 16:37
PROVIDERS: Emergency Medicine; Family Medicine; Internal Medicine; Internal Medicine Gastroenterology; ADMIT Hospitalist
PROC: 0DH67UZ Insertion of Feeding Device into Stomach, Via Natural or Artificial Opening (ICD-10-PCS; 2018-11-21)
PROC: 0DJ08ZZ Inspection of Upper Intestinal Tract, Via Natural or Artificial Opening Endoscopic (ICD-10-PCS; principal; 2018-11-28 10:45)
DX: A41.9 Sepsis, unspecified organism (principal); J96.01 Acute respiratory failure with hypoxia; J69.0 Pneumonitis due to inhalation of food and vomit; N17.9 Acute kidney failure, unspecified; E87.1 Hypo-osmolality and hyponatremia; E44.0 Moderate protein-calorie malnutrition; N25.81 Secondary hyperparathyroidism of renal origin; R65.20 Severe sepsis without septic shock; K44.9 Diaphragmatic hernia without obstruction or gangrene; F03.90 Unspecified dementia, unspecified severity, without behavioral disturbance, psychotic disturbance, mood disturbance, and anxiety; I10 Essential (primary) hypertension; I25.10 Atherosclerotic heart disease of native coronary artery without angina pectoris; F32.9 Major depressive disorder, single episode, unspecified; D63.8 Anemia in other chronic diseases classified elsewhere; B34.8 Other viral infections of unspecified site; I95.9 Hypotension, unspecified; K21.9 Gastro-esophageal reflux disease without esophagitis; N40.0 Benign prostatic hyperplasia without lower urinary tract symptoms; E78.5 Hyperlipidemia, unspecified; G40.909 Epilepsy, unspecified, not intractable, without status epilepticus; Z87.891 Personal history of nicotine dependence; Z86.73 Personal history of transient ischemic attack (TIA), and cerebral infarction without residual deficits
CPT/HCPCS: 0099U; 36415; 36600; 49440; 51701; 71045; 71046; 74018; 80048; 80053; 80069; 81001; 82803; 82947; 83605; 83735; 83880; 84100; 84145; 84484; 85025; 87040; 87070; 87205; 92526; 92610; 93005; 93010; 93306; 94640; 94667; 94760; 96365-59; 96367-59; 97110; 97116; 97161; 97167; 97530; 97535; 98960; 99152; 99153; 99285-25; A9270; C1769; J0456; J0690; J0696; J1165; J1650; J2250; J2704; J2920; J2930; J3010; J7030; J7050; J7120; Q9967

== ENCOUNTER 2019-04-24 15:50 | Emergency (ER) | payer OTHER ==
[~2019-04-24] VITALS: Ht 157.5 cm; Wt 72.6 kg
[~2019-04-24 15:50] MED LIST changes: +(None)15 GM TOP; +Fibercon625 MG PO; +GAVILAX17 GM PO; +TAMS.4ER PO; +Zantac150 MG PO
[2019-04-24] MEDS ORDERED: ACET325 PT (16:09)
[2019-04-24] MEDS ORDERED: BISA10S PR (16:10)
[2019-04-24] MEDS ORDERED: FAMO20 PT (16:11)
[2019-04-24] MEDS ORDERED: Fleet Enema132 ML PR (16:12)
[2019-04-24] MEDS ORDERED: BASE B,POLYETHYL1 GM PT (17:23)
[2019-04-24] MEDS ORDERED: MILK OF MA400 MG/5 M PT (17:41)
[2019-04-24] MEDS ORDERED: ONDA4 PT (17:42)
== END 2019-04-24 21:37 | disposition home or self-care (01) ==
LOC: ER 15:50
DX: Z43.1 Encounter for attention to gastrostomy (principal); I12.9 Hypertensive chronic kidney disease with stage 1 through stage 4 chronic kidney disease, or unspecified chronic kidney disease; N18.9 Chronic kidney disease, unspecified; K21.9 Gastro-esophageal reflux disease without esophagitis; F32.9 Major depressive disorder, single episode, unspecified; F03.90 Unspecified dementia, unspecified severity, without behavioral disturbance, psychotic disturbance, mood disturbance, and anxiety; E78.5 Hyperlipidemia, unspecified; Z87.891 Personal history of nicotine dependence; Z79.899 Other long term (current) drug therapy; Z79.51 Long term (current) use of inhaled steroids; Z86.73 Personal history of transient ischemic attack (TIA), and cerebral infarction without residual deficits
CPT/HCPCS: 49465; 74018; 99283-25; Q9963

== ENCOUNTER → 2019-07-28 | Outpatient (CLI) | payer OTHER ==
[~2019-07-28] MED LIST changes: +ACET325 PT; +BASE B,POLYETHYL1 GM PT; +FAMO20 PT; +Fleet Enema132 ML PR; +MILK OF MA400 MG/5 M PT; +ONDA4 PT
[2019-07-28 09:03] LABS: BASOPHILS ABSOLUTE AUTO 0.06 K/mm3 (0.00-0.23); BASOPHILS PERCENT AUTO 1 % (0-2); EOSINOPHILS PERCENT AUTO 6 % (0-6); Hematocrit 50.1 % (37.0-53.0); Hemoglobin 16.6 g/dL (13.5-17.5); IMMATURE GRAN ABSOLUTE AUTO 0.01 K/mm3 (0.00-0.10); IMMATURE GRAN PERCENT AUTO 0 % (0-1); LYMPHOCYTES ABSOLUTE AUTO 2.33 K/mm3 (0.84-5.20); LYMPHOCYTES PERCENT AUTO 28 % (21-46); MONOCYTES ABSOLUTE AUTO 0.85 K/mm3 (0.16-1.47); MONOCYTES PERCENT AUTO 10 % (4-13); Mean Corpuscular HGB Conc 33.1 g/dL (31.5-36.5); Mean Corpuscular Volume 100 fL (80-100); Mean Platelet Volume 11.8 fL (9.1-12.4); NEUTROPHILS ABSOLUTE AUTO 4.62 K/mm3 (1.96-9.15); NEUTROPHILS PERCENT AUTO 55 % (41-73); Platelet Count 285 K/mm3 (150-400); RDW Coefficient Variation 12.7 % (11.7-14.2); RDW Standard Deviation 47.1 fL (35.1-46.3); Red Blood Cell Count 5.03 M/mm3 (4.30-5.90); White Blood Cell Count 8.37 K/mm3 (4.00-11.30)
[2019-07-28 09:14] LABS: Anion Gap 4 mmol/L (6-16); Blood Urea Nitrogen 19 mg/dL (8-24); Bun/Creatinine Ratio 31.5 (12.0-20.0); CO2, Blood 29 mmol/L (21-32); Calcium, Blood 9.6 mg/dL (8.5-10.1); Chloride, Blood 104 mmol/L (98-108); Glomerular Filtration Rate >60 (60-); Glucose, Blood 125 mg/dL (70-99); Potassium, Blood 4.1 mmol/L (3.5-5.5); Sodium, Blood 137 mmol/L (136-145)
[2019-07-28 09:18] LABS: Prothrombin Time Results 10.7 Sec (9.7-11.5)
== END | disposition home or self-care (01) ==
LOC: LAB UVN 07:41 → EDSTATUS 11:13
PROVIDERS: Family Medicine
DX: I63.9 Cerebral infarction, unspecified (principal); F03.90 Unspecified dementia, unspecified severity, without behavioral disturbance, psychotic disturbance, mood disturbance, and anxiety
CPT/HCPCS: 36415; 80048; 85025; 85610